=== PATIENT | female | born 1960 | race Two or more races ===

== ENCOUNTER 2021-03-19 07:28 | Day surgery (SDC) | payer OTHER | END 2021-03-19 13:25 | disposition home or self-care (01) | LOC: AMB-ENDOS 07:28 → CIR.AMB 07:28 → AMB-ENDOS 13:25 | PROVIDERS: ATTEND Surgery | DX: D12.4 Benign neoplasm of descending colon (principal); K64.4 Residual hemorrhoidal skin tags; Z20.822 Contact with and (suspected) exposure to COVID-19 ==